=== PATIENT | male | born 1975 | race Caucasian/White ===

== ENCOUNTER → 2018-05-08 | Outpatient (CLI) | payer OTHER, SELFPAY ==
[~2018-05-08] MED LIST: AMPDEX30CR PO; HYDACE5 PO; Pepcid20 MG PO
[2018-05-09 11:59] LABS: Adenovirus F 40/41 Not Detected (NOT DETECT); Astrovirus Not Detected (NOT DETECT); Campylobacter Sp Not Detected (NOT DETECT); Cryptosporidium Not Detected (NOT DETECT); Cyclospora Cayetanensis Not Detected (NOT DETECT); E. Coli O157 Not Detected (NOT DETECT); Entamoeba Histolytica Not Detected (NOT DETECT); Enteroaggregative E. coli-EAEC Not Detected (NOT DETECT); Enteropathogenic E. coli-EPEC Not Detected (NOT DETECT); Enterotoxigenic E. coli-ETEC Not Detected (NOT DETECT); Giardia Lamblia Not Detected (NOT DETECT); Norovirus GI/GII Not Detected (NOT DETECT); Plesiomonas Shigelloides Not Detected (NOT DETECT); Rotavirus A Not Detected (NOT DETECT); Salmonella Sp Not Detected (NOT DETECT); Sapovirus Not Detected (NOT DETECT); Shiga Toxin-prod E. coli-STEC Not Detected (NOT DETECT); Shigella/Enteroin E. coli-EIEC Not Detected (NOT DETECT); Vibrio Cholerae Not Detected (NOT DETECT); Vibrio Sp Not Detected (NOT DETECT); Yersinia Enterocolitica Not Detected (NOT DETECT)
== END | disposition home or self-care (01) ==
LOC: LAB 17:00 → LAB SHORT 17:00
PROVIDERS: Student in an Organized Health Care Education/Training Program
DX: R19.7 Diarrhea, unspecified (principal); R14.0 Abdominal distension (gaseous)
CPT/HCPCS: 87507

== ENCOUNTER 2018-05-10 11:08 | Day surgery (SDC) | payer OTHER, SELFPAY ==
[~2018-05-10] VITALS: Ht 172.7 cm; Wt 95.7 kg
--- NOTE | 2018-05-10 13:56 | NUR ---
05/10/18 1355 Shadia Jimenez LATE ENTRY: PT UPDATED THROUGHOUT WAIT IN PREOP DUE TO PREVIOUS CASE RUNNING LONGER THAN ANTICIPATED. WARM BLANKET GIVEN TO PT, CALL LIGHT IN REACH. PT'T FIANCE NOT HERE, WILL CALL WHEN HE IS DONE. PT RESTING COMFORTABLY.
== END 2018-05-10 14:55 | disposition home or self-care (01) ==
LOC: ORSCSDS 11:08
PROVIDERS: Student in an Organized Health Care Education/Training Program
PROC: 0DB68ZX Excision of Stomach, Via Natural or Artificial Opening Endoscopic, Diagnostic (ICD-10-PCS; principal; 2018-05-10 13:00)
PROC: 0DB58ZX Excision of Esophagus, Via Natural or Artificial Opening Endoscopic, Diagnostic (ICD-10-PCS; principal; 2018-05-10 13:00)
DX: R13.10 Dysphagia, unspecified (principal); K22.10 Ulcer of esophagus without bleeding; K29.70 Gastritis, unspecified, without bleeding; K44.9 Diaphragmatic hernia without obstruction or gangrene; R14.0 Abdominal distension (gaseous); Z87.891 Personal history of nicotine dependence
CPT/HCPCS: 88305; 88342; J2250; J7120